=== PATIENT | male | born 1995 | race Caucasian/White ===

== ENCOUNTER 2025-08-04 12:21 | Emergency (ER) | payer SELFPAY ==
[2025-08-04 13:47] LABS: Absolute Lymphocytes (CBC) 1.8 K/uL (0.7-4.9); Hematocrit 46.4 % (39.6-49.0); Hemoglobin 16.1 g/dL (13.6-17.9); MCH 30.3 pg (27.0-35.0); MCHC 34.8 g/dL (32.0-36.0); MCV 87.2 fL (80-100); MPV 6.8 fL (7.6-11.3); Nucleated RBC Absolute Count 0.0 (0-0); Nucleated Red Blood Cells % 0.1 % (0-0); RBC Red Blood Cell Count 5.32 M/uL (4.33-5.43); White Blood Count 11.80 thou/uL (4.3-10.9)
[2025-08-04 13:51] LABS: Sqamous Epithelial None Seen /HPF (None Seen); Urine Crystals Unidentified Few /HPF (None Seen); Urine Culture Reflex Order NOT NEEDED; Urine Microscopic Reflex YN ORDER UMIC; Urine Yeast (Budding) Trace /HPF (None Seen)
--- NOTE | 2025-08-04 14:15 | RAD REPORT ---
EXAMINATION: CT Abdomen Pelvis Wo Contrast CLINICAL INDICATION: Male, 29 years old. ABD PAIN TECHNIQUE: CT abdomen and pelvis was performed, without IV contrast, as per department protocol. Axia l, sagittal and coronal reconstructions were obtained. One or more of the following dose reduction techniques were used: Automated exposure control, adjustment of the mA and kV according to the patien t size, and iterative reconstruction. Unless otherwise specified, incidental findings do not require dedicated imaging follow-up. COMPARISON: No prior exam. FINDINGS: The lack of intravenous contrast limits the sensitivity of this exam for evaluation of solid visceral organs, vascular structures, and retroperitoneum. LOWER CHEST: The visualized lung bases are clear. LIVER: Normal in size and contour. No focal lesion. BILIARY SYSTEM: No suspicious abnormalities. SPLEEN: Normal size. No focal lesion. PANCREAS: No mass, ductal dilation, or gaurav-pancreatic fluid. ADRENALS: Normal; no mass. KIDNEYS AND URETERS: Normal size and contour. 1 cm interpolar left renal cyst, not well characterized . Right hydroureteronephrosis, mild. Hydronephrosis. URINARY BLADDER: 3 mm calculus near the vesicoureteral junction, right of midline. GASTROINTESTINAL TRACT: No evidence of bowel obstruction, significant free fluid, free air or abscess . APPENDIX: Normal appendix. LYMPH NODES: No lymphadenopathy. MUSCULOSKELETAL: No acute or suspicious osseous abnormality. ADDITIONAL FINDINGS: None. IMPRESSION: Mild right hydroureteronephrosis. 3 mm calculus near the right vesicoureteral junction, could be rece ntly passed. THIS REPORT CONTAINS FINDINGS THAT MAY BE CRITICAL TO PATIENT CARE. The findings were verbally commun icated via telephone to Van Cobian on 08/04/2025 2:12 PM.
[2025-08-04 14:20] LABS: ALT/SGPT 26.0 U/L (16-61); AST/SGOT 17.0 U/L (15-37); Albumin 4.3 g/dL (3.4-5.0); Albumin/Globulin Ratio 1.2 (1.1-1.8); Alkaline Phosphatase 89.0 U/L (45-117); Anion Gap 7.9 mEq/L (5.0-15.0); BUN Blood Urea Nitrogen 15.0 mg/dL (7-18); Globulin 3.7 g/dL (2.3-3.5); Glucose Level 101.0 mg/dL (74-106); Potassium 3.9 mEq/L (3.5-5.1)
--- NOTE | 2025-08-04 15:30 | ER ---
Nurse's Notes [facility] Name: Arun Edwards Age: 29 yrs Sex: Male : 1995 Arrival Date: 08/04/2025 Time: 12:21 Bed IW1 Private MD: Diagnosis: Kidney stone Presentation: 08/04 13:02 Chief complaint: Patient states: he is having right sided abdominal pain that started ap3 this morning. patient states the pain was radiating into his groin area. patient currently rates his pain as a 2/10 on the pain scale but at its worse was an 8/10. patient reports nausea and dry-heaving along with the pain. Coronavirus screen: At this time, the client does not indicate any symptoms associated with coronavirus-19. Ebola Screen: No symptoms or risks identified at this time. Initial Sepsis Screen: Does the patient meet any 2 criteria? No. Patient's initial sepsis screen is negative. Does the patient have a suspected source of infection? No. Patient's initial sepsis screen is negative. Risk Assessment: Do you want to hurt yourself or someone else? Patient reports no desire to harm self or others. Onset of symptoms was August 04, 2025. 13:02 Method Of Arrival: Ambulatory ap3 13:02 Acuity: SERA 3 ap3 Triage Assessment: 13:06 General: Appears in no apparent distress. Behavior is calm, cooperative, appropriate ap3 for age. Pain: Complains of pain in right upper quadrant and right lower quadrant Pain currently is 2 out of 10 on a pain scale. at worst was 8 out of 10 on a pain scale. Neuro: Level of Consciousness is awake, alert, obeys commands, Oriented to person, place, time, situation, Appropriate for age. Cardiovascular: Patient's skin is warm and dry. Respiratory: Airway is patent Respiratory effort is even, unlabored. GI: Reports lower abdominal pain, upper abdominal pain, nausea. Historical: - Allergies: 13:04 No Known Allergies; ap3 - Home Meds: 13:04 None [Active]; ap3 - PMHx: 13:04 None; ap3 - Immunization history:: Adult Immunizations up to date. - Infectious Disease History:: Denies. - Social history:: Smoking status: Patient denies any tobacco usage or history of. Screenin:07 [facility] ED Fall Risk Assessment (Adult) History of falling in the last 3 months, ap3 including since admission No falls in past 3 months (0 pts) Confusion or Disorientation No (0 pts) Intoxicated or Sedated No (0 pts) Impaired Gait No (0 pts) Mobility Assist Device Used No (0 pt) Altered Elimination No (0 pt) Score/Fall Risk Level 0 - 2 = Low Risk Oriented to surroundings, Maintained a safe environment, Educated pt \T\ family on fall prevention, incl call for assistance when getting out of bed, Assessed \T\ reinforced patient's understanding of fall precautions, Hourly rounding (assess needs \T\ fall precautionary measures) done, Used ambulatory aids as needed (educated on \T\ assisted with). Abuse screen: Denies threats or abuse. Nutritional screening: No deficits noted. Tuberculosis screening: No symptoms or risk factors identified. Assessment: 15:53 GI: Bowel sounds present X 4 quads. Abd is soft and non tender. ap3 Vital Signs: 13:02 BP 144 / 94; Pulse 64; Resp 17; Temp 97.7; Pulse Ox 97% on R/A; Weight 74.84 kg; Height ap3 5 ft. 8 in. ; Pain 2/10; 15:52 Pulse 68; Resp 16; Pulse Ox 98% on R/A; ap3 13:02 Body Mass Index 25.09 (74.84 kg, 172.72 cm) ap3 13:02 Pain Scale: Adult ap3 ED Course: 12:46 Patient arrived in ED. cj3 12:52 Van Cobian DO is Attending Physician. ms3 13:04 Triage completed. ap3 13:07 Arm band placed on right wrist. ap3 13:20 CT Abd/Pelvis - Without Contrast In Process Unspecified. EDMS 13:37 Urine collected: clean catch specimen, sent to lab. ts3 13:38 CBC with Diff Sent. bc6 13:38 CMP Sent. bc6 13:38 Initial lab(s) drawn, by me, sent to lab. Inserted saline lock: 20 gauge in left bc6 antecubital area, using aseptic technique. Blood collected. Flushed with 10 mL NS. 15:28 Bart Barcenas MD is Referral Physician. ms3 15:53 Patient has correct armband on for positive identification. Provided Education on: ap3 discharge instructions . 15:53 No provider procedures requiring assistance completed. IV discontinued, intact, ap3 bleeding controlled, No redness/swelling at site. Pressure dressing applied. Administered Medications: 15:47 Not Given (pt up for dischargee): TORadol - [id number] mg IVP once ap3 15:47 Not Given (pt up for dischargee): ns 0.9% 1000 ml IV at 1 bolus Per protocol; to be ap3 given as a bolus over 60 minutes Medication: 15:53 VIS not applicable for this client. ap3 Outcome: 15:29 Discharge ordered by . ms3 15:53 Discharged to home ambulatory, with family, ap3 15:53 Condition: good 15:53 Discharge instructions given to patient, Instructed on discharge instructions, follow up and referral plans. Demonstrated understanding of instructions, follow-up care, 15:54 Patient left the ED. ap3 Signatures: Dispatcher [employer] EDLavonne Gonzalez RN RN ap3 Van Cobian DO DO ms3 Aliza Lyles6 Janel Aponte cj3 Nancy Gan ts3
--- NOTE | 2025-08-04 15:30 | EDPHYS ---
Physician Documentation [facility] Name: Arun Edwards Age: 29 yrs Sex: Male : 1995 Arrival Date: 08/04/2025 Time: 12:21 Bed IW1 Private MD: ED Physician Van Cobian HPI: 08/04 20:42 This 29 yrs old Male presents to ER via Ambulatory with complaints of Abdominal Pain, ms3 Nausea/Vomiting/Diarrhea. 20:42 29-year-old male with no past medical history presents to the emergency department for ms3 abdominal pain, nausea, vomiting that was located in his right lower quadrant radiating to his groin. Patient states pain awoke him from sleep and has improved and is currently /10. Patient endorses nausea and vomiting. He denies any alleviating or inciting factors.. Historical: - Allergies: 13:04 No Known Allergies; ap3 - Home Meds: 13:04 None [Active]; ap3 - PMHx: 13:04 None; ap3 - Immunization history:: Adult Immunizations up to date. - Infectious Disease History:: Denies. - Social history:: Smoking status: Patient denies any tobacco usage or history of. ROS: 20:42 Constitutional: Negative for fever, and chills. Cardiovascular: Negative for chest ms3 pain, and palpitations. Respiratory: Negative for shortness of breath, cough, wheezing, and pleuritic chest pain, 20:42 MS/Extremity: Negative for injury and deformity, Skin: Negative for injury, rash, and discoloration, 20:42 Abdomen/GI: Positive for abdominal pain, nausea, vomiting, Exam: 20:42 Constitutional: This is a well developed, well nourished patient who is awake, alert, ms3 and in no acute distress. Cardiovascular: Regular rate and rhythm with a normal S1 and S2. No gallops, murmurs, or rubs. Normal PMI, no JVD. No pulse deficits. Respiratory: Lungs have equal breath sounds bilaterally, clear to auscultation and percussion. No rales, rhonchi or wheezes noted. No increased work of breathing, no retractions or nasal flaring. Abdomen/GI: Soft, non-tender, with normal bowel sounds. No distension or tympany. No guarding or rebound. No evidence of tenderness throughout. Skin: Warm, dry with normal turgor. Normal color with no rashes, no lesions, and no evidence of cellulitis. MS/ Extremity: Pulses equal, no cyanosis. Neurovascular intact. Full, normal range of motion. Vital Signs: 13:02 BP 144 / 94; Pulse 64; Resp 17; Temp 97.7; Pulse Ox 97% on R/A; Weight 74.84 kg; Height ap3 5 ft. 8 in. ; Pain 2/10; 15:52 Pulse 68; Resp 16; Pulse Ox 98% on R/A; ap3 13:02 Body Mass Index 25.09 (74.84 kg, 172.72 cm) ap3 13:02 Pain Scale: Adult ap3 MDM: 13:07 Medical Screening Exam initiated ms3 20:42 Differential diagnosis: Nonspecific abd pain, appendicitis, Kidney stone. Data ms3 reviewed: vital signs, nurses notes, lab test result(s), radiologic studies, CT scan, and as a result, I will discharge patient. I considered the following discharge prescriptions or medication management in the emergency department Meds were ordered and not given. Counseling: I had a detailed discussion with the patient and/or guardian regarding the historical points, exam findings, and any diagnostic results supporting the discharge/admit diagnosis, lab results, radiology results, the need for outpatient follow up, to return to the emergency department if symptoms worsen or persist or if there are any questions or concerns that arise at home. Counseling: I had a detailed discussion with the patient and/or guardian regarding the presence of at least one elevated blood pressure reading (>120/80) during this emergency department visit. Special discussion: I discussed with the patient/guardian in detail that at this point there is no indication for admission to the hospital. It is understood, however, that if the symptoms persist or worsen the patient needs to return immediately for re-evaluation. Special discussion: I have referred the patient to see his PCP for further evaluation of high blood pressure. ED course: Discussed with patient and his likely recent passed 3 mm kidney stone; hence, his improvement in pain. Urinalysis shows blood consistent with kidney stone. CT scan shows hydronephrosis likely secondary to recently passed kidney stone. Patient to follow-up with Dr. Barcenas in 2 to 3 days. Patient understands and agrees with plan. All questions were answered. Return precautions were discussed include worsening symptoms, or any other concerns. On reevaluation patient is alert and orient x 4, no apparent distress, nontoxic-appearing, speaking full sentences.. 08/04 13:07 Order name: CBC with Diff; Complete Time: 14:23 ms3 08/04 13:07 Order name: CMP; Complete Time: 14:23 ms3 08/04 13:07 Order name: UA Rfx Martin Cult if indicated; Complete Time: 14:23 ms3 08/04 13:07 Order name: CT Abd/Pelvis - Without Contrast; Complete Time: 14:23 ms3 08/04 13:07 Order name: IV Saline Lock; Complete Time: 13:38 ms3 08/04 13:07 Order name: Labs collected and sent; Complete Time: :38 ms3 Administered Medications: 15:47 Not Given (pt up for dischargee): TORadol - [id number] mg IVP once ap3 15:47 Not Given (pt up for dischargee): ns 0.9% 1000 ml IV at 1 bolus Per protocol; to be ap3 given as a bolus over 60 minutes Disposition Summary: 08/04/25 15:29 Discharge Ordered Notes: Location: Home ms3 Condition: Stable ms3 Diagnosis - Kidney stone ms3 Followup: ms3 - With: Bart Barcenas MD - When: 2 - 3 days - Reason: Recheck today's complaints Discharge Instructions: - Discharge Summary Sheet ms3 - Kidney Stones, [id number] ms3 Forms: - Medication Reconciliation Form ms3 - Antibiotic Education ms3 - Prescription Opioid Use ms3 - Patient Portal Instructions ms3 - Leadership Thank You Letter ms3 Signatures: Dispatcher [employer] Lavonne Hubbard, RN RN ap3 Van Cobian DO DO ms3
[2025-08-04 21:34] VITALS: BP 144/94; TEMP 97.7
[2025-08-04 21:35] VITALS: O2SAT 98
== END 2025-08-04 15:54 | disposition home or self-care (01) ==
LOC: ER 12:21
DX: N20.0 Calculus of kidney (principal)
CPT/HCPCS: 36415; 74176; 80053; 81001; 85025; 99283